=== PATIENT | male | born 1975 | race African-American/Black ===

== ENCOUNTER 2020-03-16 22:15 | Emergency (ER) | payer OTHER ==
--- NOTE | 2020-03-16 23:39 | EDM.PDOC ---
ED HPI GENERAL MEDICAL PROBLEM - General Chief Complaint: General Stated Complaint: COVID-19 Time Seen by Provider: 03/16/20 22:56 - History of Present Illness INITIAL COMMENTS - FREE TEXT/NARRATIVE: History of present illness: 44-year-old male presenting with concern for possible coronavirus. 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 The patient today felt somewhat warm and developed a headache and he was concerned he may have coronavirus as well. He has not had any coughing, difficulty breathing or chest pain. No past medical history. Review of systems: As per history of present illness and below otherwise all systems reviewed and negative. Past medical history: As per history of present illness and as reviewed below otherwise noncontributory. Surgical history: As per history of present illness and as reviewed below otherwise noncontributory. Social history: No reported history of drug or alcohol abuse. Denies tobacco Family history: As per history of present illness and as reviewed below otherwise noncontributory. Physical exam: GEN: no acute distress, well appearing HEENT: Atraumatic, normocephalic, mucous membranes moist Neck: supple, no meningismus. Lungs: No respiratory distress. Heart: RRR Extremities: Atraumatic. Neurovascularly intact. Neuro: Awake, alert, oriented. Neuro Exam nonfocal. Skin: warm, dry, no lesions Diagnostics: COVID swab Therapeutics: [] MDM: Impression: [] Plan: [] Definitive disposition and diagnosis as appropriate pending reevaluation and review of above. - Related Data Allergies Allergy/AdvReac Type Severity Reaction Status Date / Time No Known Allergies Allergy Verified 03/16/20 22:47 Home Meds: Home Meds . [No Known Home Meds] 03/16/20 [History] Past Medical History - Past Health History Medical/Surgical History: Denies Medical/Surgical History Social & Family History - Tobacco Use Smoking Status *Q: Never Smoker - Recreational Drug Use Recreational Drug Use: No ED ROS GENERAL - Review of Systems Review Of Systems: See Below (See HPI) ED EXAM, GENERAL - Physical Exam Exam: See Below (See HPI) Course - Vital Signs Text/Narrative:: Patient with mild symptoms, afebrile and well-appearing here. 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 We will check COVID swab. COVID swab resulted as negative. However I did discuss with the patient my recommendation for 2 weeks of self-isolation anyway as he was directly exposed to a COVID positive contact. Last Recorded V/S: Last Vital Signs Temp 96.6 F L 03/16/20 22:45 Pulse 86 03/16/20 22:45 Resp 17 03/16/20 22:45 BP 146/91 H 03/16/20 22:45 Pulse Ox 93 L 03/16/20 22:45 - Orders/Labs/Meds Labs: Laboratory Tests 03/16/20 Range/Units 23:20 COVID-19 ([facility]) NEGATIVE (NEGATIVE) - Re-Assessments/Exams Free Text/Narrative Re-Assessment/Exam: 03/17/20 00:13 Results of COVID swab and need for self-isolation discussed with the patient. Patient is feeling well and in no acute distress. Will discharge. Departure - Departure Time of Disposition: 00:14 Disposition: Home, Self-Care 01 Clinical Impression: Exposure to COVID-19 virus - Discharge Information Instructions: Airborne Precautions, [id number], Infection Prevention in the Home Referrals: PCP,None [Primary Care Provider] - Forms: ED Department Discharge, ED Return to Work/School Form Additional Instructions: Your COVID swab was negative. However please still self isolate yourself for the next 2 weeks as you were exposed to coronavirus. A work note will be provided. If you develop difficulty breathing, weakness, chest pain, dizziness, or any other worsening or concerning symptoms, please return to the emergency department immediately. The following information is given to patients seen in the emergency department who are being discharged to home. This information is to outline your options for follow-up care. We provide all patients seen in our emergency department with a follow-up referral. The need for follow-up, as well as the timing and circumstances, are variable depending upon the specifics of your emergency department visit. If you don't have a primary care physician on staff, we will provide you with a referral. We always advise you to contact your personal physician following an emergency department visit to inform them of the circumstance of the visit and for follow-up with them and/or the need for any referrals to a consulting specialist. The emergency department will also refer you to a specialist when appropriate. This referral assures that you have the opportunity for follow-up care with a specialist. All of these measure are taken in an effort to provide you with optimal care, which includes your follow-up. Under all circumstances we always encourage you to contact your private physician who remains a resource for coordinating your care. When calling for follow-up care, please make the office aware that this follow-up is from your recent emergency room visit. If for any reason you are refused follow-up, please contact the [facility] Emergency Department at and asked to speak to the emergency department charge nurse. [facility] [address] [place] [id number] [facility] [address] [place] [id number] Sepsis Event Note (ED) - Evaluation Sepsis Screening Result: No Definite Risk - Focused Exam Vital Signs: Vital Signs Temp Pulse Resp BP Pulse Ox 03/16/20 22:45 96.6 F L 86 17 146/91 H 93 L
== END 2020-03-17 00:31 | disposition home or self-care (01) ==
LOC: MW.ED 22:15
DX: Z20.828 Contact with and (suspected) exposure to other viral communicable diseases (principal)
CPT/HCPCS: 99282; 99284; U0002